=== PATIENT | female | born 1945 ===

== ENCOUNTER → 2018-05-08 | Outpatient (CLI) | payer MEDICARE, BC ==
[2018-05-08 15:38] VITALS: BP 125/86; PULSE 64; RESP 16; TEMP 98; BMI 37.9
--- NOTE | 2018-05-08 15:51 | P.HPBAR ---
Bariatric H&P - History & Physicial H&P Date: 05/08/18 History & Physicial: Visit/CC: INITIAL VISIT Patient initial contact: Initial weight: 99.535 kg Initial weight in pounds: 219.44 Height: 5 ft 3.75 in Initial BMI: 37.9 Last weight: Current weight: 99.535 kg Current weight in pounds: 219.44 Current BMI: 37.9 [place] body weight (based on NIH guidelines): 53.864 kg Excess body weight loss: 0.0% The patient is a 73 year-old F who presents for Bariatric Assessment. HPI: Her Hgb A1C is 9.4. She has trouble with swallowing. She is on insulin. She reports severe dysphagia. She has regurgitation. She has obtained cardiac clearance She has hypertension. She has CPAP for sleep apnea. No abdominal pain. Her gallbladder has been removed. No Crohns or ulcerative colitis. She is mom to [facility]. ABDOMEN: Soft ASSESSMENT: 1. Morbid obesity PLAN: 1. Labs 2. Upper endoscopy and Colonscopy for screen 3. Esophogram 4. Looking into the gastric bypass. Past Medical History Past Medical History: Diabetes Mellitus, Eye Disorder, GERD/Reflux, Hyperlipidemia, Hypertension, Thyroid Disorder History of Any Multi-Drug Resistant Organisms: None Reported Past Surgical History: Back Surgery, Cholecystectomy, Hysterectomy, Orthopedic Surgery, Tonsillectomy Additional Past Surgical History / Comment(s): right rotator cuff surgery Past Anesthesia/Blood Transfusion Reactions: No Reported Reaction Past Psychological History: No Psychological Hx Reported Smoking Status: Never smoker Past Alcohol Use History: None Reported Past Drug Use History: None Reported Surgical - Exam Vital Signs Temp Pulse Resp BP 98 F 64 16 125/86 05/08/18 15:24 05/08/18 15:24 05/08/18 15:24 05/08/18 15:24 Bariatric Checklist Checklist: Plan: Checklist: EGD: 1. Hiatal hernia: 2. H. Pylori: HgbA1c: Vitamin D: Smoking: Never smoker Primary care physician referral: Kimber Psychiatry clearance: Cardiology clearance: Sleep study: Diet journal: VTE risk score: VTE risk level: Rehab needs at discharge:
[2018-05-08 16:35] LABS: HCT 44.1 % (34.0-46.0); MCH 27.7 pg (25.0-35.0); MCHC 31.8 g/dL (31.0-37.0); MCV 87.3 fL (80.0-100.0); Mean Platelet Volume 7.3; Platelet Count 166 k/uL (150-450); RBC 5.05 m/uL (3.80-5.40); RDW 13.9 % (11.5-15.5); WBC 8.1 k/uL (3.8-10.6)
[2018-05-09 02:26] LABS: Iron Saturation 16.77 (12.00-45.00)
[2018-05-09 02:34] LABS: Vitamin D 25 Hydroxy 30.6 ng/mL (30.0-100.0)
[2018-05-09 02:36] LABS: Folate, Serum 15.4 ng/mL
[2018-05-09 02:38] LABS: Hemoglobin A1C 9.6 % (4.0-6.0)
[2018-05-09 04:28] LABS: ALT 12 U/L (8-44); AST 16 U/L (13-35); Albumin/Globulin Ratio 1.73 (1.60-3.17); Alkaline Phosphatase 90 U/L (41-126); Calcium 9.2 mg/dL (8.7-10.3); Carbon Dioxide 32.1 mmol/L (21.6-31.8); Chloride 98 mmol/L (96-109); Cholesterol 181 mg/dL (0-200); Globulin 2.2 g/dL (1.6-3.3); Glucose 272 mg/dL (70-110); Potassium 4.5 mmol/L (3.5-5.5); Sodium 138 mmol/L (135-145); Total Bilirubin 0.3 mg/dL (0.2-1.2)
== END ==
LOC: BARWHC3 13:47
PROVIDERS: ATTEND Surgery Plastic and Reconstructive Surgery
DX: Z48.815 Encounter for surgical aftercare following surgery on the digestive system (principal); R13.10 Dysphagia, unspecified; E88.81 Metabolic syndrome and other insulin resistance; K21.9 Gastro-esophageal reflux disease without esophagitis; E66.01 Morbid (severe) obesity due to excess calories; G47.30 Sleep apnea, unspecified; I11.9 Hypertensive heart disease without heart failure; E44.0 Moderate protein-calorie malnutrition; E55.9 Vitamin D deficiency, unspecified; E11.9 Type 2 diabetes mellitus without complications; Z79.4 Long term (current) use of insulin; Z90.710 Acquired absence of both cervix and uterus; Z98.890 Other specified postprocedural states; Z90.49 Acquired absence of other specified parts of digestive tract; Z99.89 Dependence on other enabling machines and devices; Z68.37 Body mass index [BMI] 37.0-37.9, adult; Z98.84 Bariatric surgery status
CPT/HCPCS: 84425; 80061; 80053; 82607; 82728; 82746; 83540; 83550; 84443; 85027; 83721; 82306; 83036; G0463; 99201

== ENCOUNTER → 2018-07-22 | Day surgery (SDC) | payer MEDICARE, BC ==
[2018-07-18 09:31] VITALS: BMI 38.7
--- NOTE | 2018-07-21 14:30 | P.GSHP ---
History of Present Illness H&P Date: 07/22/18 CHIEF COMPLAINT: GERD and colon screen HISTORY OF PRESENT ILLNESS: The patient is a 73-year-old female who presents with gastroesophageal reflux disease and need for colon screen. Upper and lower endoscopy were offered for further evaluation and management. PAST MEDICAL HISTORY: Please see list. PAST SURGICAL HISTORY: Please see list. MEDICATIONS: Please see list. ALLERGIES: Please see list. SOCIAL HISTORY: No illicit drug use FAMILY HISTORY: No reports of Crohn disease or ulcerative colitis. REVIEW OF ORGAN SYSTEMS: CONSTITUTIONAL: No reports of fevers or chills. GI: Denies any blood in stools or constipation. PHYSICAL EXAM: VITAL SIGNS: Stable GENERAL: Well-developed pleasant in no acute distress. HEENT: No scleral icterus. Extraocular movements grossly intact. Moist buccal mucosa. NECK: Supple without lymphadenopathy. CHEST: Unlabored respirations. Equal bilateral excursions. CARDIOVASCULAR: Regular rate and rhythm. Distal 2+ pulses. ABDOMEN: Soft, nondistended. MUSCULOSKELETAL: No clubbing, cyanosis, or edema. ASSESSMENT: 1. Gastroesophageal reflux disease 2. Colon screen. PLAN: 1. Recommend proceeding with an upper and lower endoscopy Past Medical History Past Medical History: Atrial Flutter, Chest Pain / Angina, Diabetes Mellitus, Eye Disorder, GERD/Reflux, Hyperlipidemia, Hypertension, Neurologic Disorder, Thyroid Disorder Additional Past Medical History / Comment(s): glaucoma klaus eyes, parkinsons History of Any Multi-Drug Resistant Organisms: None Reported Past Surgical History: Back Surgery, Cholecystectomy, Hysterectomy, Orthopedic Surgery, Tonsillectomy Additional Past Surgical History / Comment(s): right rotator cuff surgery Past Anesthesia/Blood Transfusion Reactions: Motion Sickness, Postoperative Nausea & Vomiting (PONV) Smoking Status: Never smoker - Past Family History Sister(s) Family Medical History: Cancer Additional Family Medical History / Comment(s): colon cancer Medications and Allergies Home Medications Medication Instructions Recorded Confirmed Type Apixaban [Eliquis] 5 mg PO BID 05/08/18 07/18/18 History Fesoterodine Fumarate [Toviaz] 8 mg PO DAILY 05/08/18 07/18/18 History Gabapentin 600 mg PO TID 05/08/18 07/18/18 History Insulin Aspart [NovoLOG] 14 unit SQ TID 05/08/18 07/18/18 History Insulin Glargine [Lantus] 36 unit SQ HS 05/08/18 07/18/18 History Latanoprost Ophth [Xalatan 0.005%] 1 drop BOTH EYES HS 05/08/18 07/18/18 History Levothyroxine Sodium [Tirosint] 100 mcg PO DAILY 05/08/18 07/18/18 History Metoprolol Succinate (ER) [Toprol 50 mg PO BID 05/08/18 07/18/18 History XL] Montelukast [Singulair] 10 mg PO DAILY 05/08/18 07/18/18 History Omeprazole 20 mg PO BID 05/08/18 07/18/18 History Potassium Chloride [Klor-Con 20] 20 meq PO DAILY 05/08/18 07/18/18 History Pravastatin Sodium [Pravachol] 80 mg PO DAILY 05/09/18 07/18/18 History Albuterol Inhaler [Ventolin Hfa 1 - 2 puff INHALATION RT-Q6H PRN 07/18/18 07/18/18 History Inhaler] Nitroglycerin Sl Tabs [Nitrostat] 0.4 mg SUBLINGUAL Q5M PRN 07/18/18 07/18/18 History Allergies Allergy/AdvReac Type Severity Reaction Status Date / Time iodine Allergy Rash/Hives Verified 07/18/18 09:15 meperidine [From Demerol] Allergy Nausea & Verified 07/18/18 09:15 Vomiting
[~2018-07-22] MED LIST: LACTATED RINGERS 1,000 ML IV SCH; LIDOCAINE 1% 20 ML VIAL (10MG/ML) FOR IV START INTRADERMA ONE; LIDOCAINE 1% INJ 10MG/ML (20 ML MDV) ONE; ONDANSETRON 4 MG/2 ML VIAL ONE; PROPOFOL 10 MG/ML 20 ML VIAL IV ONE
[2018-07-22 12:14] VITALS: RESP 16; TEMP 97.8
[2018-07-22 12:19] LABS: Glucose,Whole Blood 198 mg/dL (75-99)
--- NOTE | 2018-07-22 14:05 | P.PCN ---
Date of Procedure: 07/22/18 Description of Procedure: PREOPERATIVE DIAGNOSIS: Gastroesophageal reflux disease. Morbid obesity. Dysphagia POSTOPERATIVE DIAGNOSIS: Gastroesophageal reflux disease. Morbid obesity. Dysphagia Gastritis. Gastric polyps OPERATION: Esophagogastroduodenoscopy with biopsies along antrum. SURGEON: Lelia Miner MD ANESTHESIA: MAC. INDICATIONS: The patient is a 73-year-old female who presents with a history of reflux disease. Benefits and risks of the procedure were described. Informed consent w as obtained. DESCRIPTION: The patient was brought into the endoscopy suite and laid in the left lateral decubitus position. An Olympus gastroscope was passed along the posterior oropharynx down to the distal esophagus where the squamocolumnar junction was encountered at 45 cm from the incisors. The stomach was entered and no bile reflux was found. Additional findings are listed below. Biopsies with cold forceps were obtained of the antrum. The first through third portion of the duodenum was examined and unremarkable. Retroflexion of the scope confirmed Hill grade 3 lower esophageal valve. The squamocolumnar junction demonstrated LA grade A erosive esophagitis. The stomach was desufflated. The patient tolerated the procedure well. FINDINGS: Squamocolumnar junction 45 cm from the incisors. Diaphragmatic hiatus at 45 cm. Gastric polyps, few, along the superior pole of stomach Hill grade 3 lower esophageal valve. LA grade A erosive esophagitis. No active duodenitis. Chronic gastritis with biopsies obtained RECOMMENDATIONS: Upper endoscopy as needed.
--- NOTE | 2018-07-22 14:32 | P.PCN ---
Date of Procedure: 07/22/18 Description of Procedure: PREOPERATIVE DIAGNOSIS: Colonoscopy screening Personal history of colon polyps. POSTOPERATIVE DIAGNOSIS: Colonoscopy screening Personal history of colon polyps. Diverticulosis, scattered Multiple tubular adenomas throughout the colon. Internal hemorrhoids, grade 2. OPERATION: Colonoscopy to the ileocecal valve. Colonoscopy with multiple hot snare polypectomies Colonoscopy with multiple cold forceps biopsies. SURGEON: Lelia Miner MD. ANESTHESIA: MAC. INDICATIONS: The patient is a 73-year-old female who presents for colonoscopy screening. Last colonoscopy over 5 years ago. Benefits and risks were described and informed consent was obtained. DESCRIPTION OF PROCEDURE: The patient had undergone Gatorade, MiraLAX and Dulcolax prep. She had been brought into the operating room and laid in the left lateral decubitus position. After adequate intravenous sedation, the rectum was examined with 2% lidocaine jelly. External hemorrhoids were encountered. The rectal tone was within normal limits. No lesions were palpated in the rectal vault. An Olympus colonoscope was advanced until the ileocecal valve was viewed. Abdominal wall pressure including turning the patient supine was required to advance the scope. The prep was good with visualization of the mucosal folds. The scope was removed with visualization of each mucosal fold. Scattered diverticulosis was encountered. Multiple colonic polyps were found and cold forcep biopsy or snare polypectomy. No evidence of focal colitis was found. Retroflexion of the scope demonstrated grade 2 internal hemorrhoids without active bleeding or inflammation. The colon was desufflated. The patient had tolerated the procedure well. Withdrawal time was over 6 minutes. FINDINGS: Aronchick preparation quality scale 2 (1-5) Internal hemorrhoids, grade 2 External hemorrhoids, grade 2. No arteriovenous malformations. Redundant sigmoid colon Sigmoid diverticulosis. Removal of 3 polyps: - Snare polypectomy 60 cm from the anal verge, 5 mm tubulovillous adenoma polyp, descending colon - Cold forceps biopsy at 30 cm from the anal verge, 4 mm polyp, sigmoid colon No focal colitis. RECOMMENDATIONS: Given severity of tubular adenomas, recommend repeat colonoscopy 3 years, 2021. Plan - Discharge Summary Discharge Rx Participant: No New Discharge Prescriptions: No Action Apixaban [Eliquis] 5 mg PO BID Fesoterodine Fumarate [Toviaz] 8 mg PO DAILY Omeprazole 20 mg PO BID Potassium Chloride [Klor-Con 20] 20 meq PO DAILY Levothyroxine Sodium [Tirosint] 100 mcg PO DAILY Montelukast [Singulair] 10 mg PO DAILY Gabapentin 600 mg PO TID Metoprolol Succinate (ER) [Toprol XL] 50 mg PO BID Insulin Aspart [NovoLOG] 14 unit SQ TID Insulin Glargine [Lantus] 36 unit SQ HS Latanoprost Ophth [Xalatan 0.005%] 1 drop BOTH EYES HS Pravastatin Sodium [Pravachol] 80 mg PO DAILY Albuterol Inhaler [Ventolin Hfa Inhaler] 1 - 2 puff INHALATION RT-Q6H PRN PRN Reason: Dyspnea Nitroglycerin Sl Tabs [Nitrostat] 0.4 mg SUBLINGUAL Q5M PRN PRN Reason: Chest Pain Cephalexin [Keflex] 1 tablet PO BID Discharge Medication List Apixaban [Eliquis] 5 mg PO BID 05/08/18 [History] Fesoterodine Fumarate [Toviaz] 8 mg PO DAILY 05/08/18 [History] Gabapentin 600 mg PO TID 05/08/18 [History] Insulin Aspart [NovoLOG] 14 unit SQ TID 05/08/18 [History] Insulin Glargine [Lantus] 36 unit SQ HS 05/08/18 [History] Latanoprost Ophth [Xalatan 0.005%] 1 drop BOTH EYES HS 05/08/18 [History] Levothyroxine Sodium [Tirosint] 100 mcg PO DAILY 05/08/18 [History] Metoprolol Succinate (ER) [Toprol XL] 50 mg PO BID 05/08/18 [History] Montelukast [Singulair] 10 mg PO DAILY 05/08/18 [History] Omeprazole 20 mg PO BID 05/08/18 [History] Potassium Chloride [Klor-Con 20] 20 meq PO DAILY 05/08/18 [History] Pravastatin Sodium [Pravachol] 80 mg PO DAILY 05/09/18 [History] Albuterol Inhaler [Ventolin Hfa Inhaler] 1 - 2 puff INHALATION RT-Q6H PRN 07/18/18 [History] Nitroglycerin Sl Tabs [Nitrostat] 0.4 mg SUBLINGUAL Q5M PRN 07/18/18 [History] Cephalexin [Keflex] 1 tablet PO BID 06/03/19 [History] Follow up Appointment(s)/Referral(s): [facility],. [NON-STAFF] - 08/07/18 Patient Instructions/Handouts: Colorectal Polyps (DC), Diverticulosis Diet (GEN), Gastritis (ED) Activity/Diet/Wound Care/Special Instructions: Repeat colonoscopy in 3 years, 2021. START ELIQUIS ON 07/26/2018 Discharge Disposition: HOME SELF-CARE
[2018-07-22 14:41] LABS: Glucose,Whole Blood 165 mg/dL (75-99)
[2018-07-22 15:01] VITALS: BP 144/79; PULSE 60
== END | disposition home or self-care (01) ==
LOC: ORWHC2ENDO 11:10
PROVIDERS: ATTEND Surgery Plastic and Reconstructive Surgery
DX: Z12.11 Encounter for screening for malignant neoplasm of colon (principal); K29.50 Unspecified chronic gastritis without bleeding; D12.4 Benign neoplasm of descending colon; D12.5 Benign neoplasm of sigmoid colon; K31.7 Polyp of stomach and duodenum; I48.92 Unspecified atrial flutter; E11.39 Type 2 diabetes mellitus with other diabetic ophthalmic complication; H42 Glaucoma in diseases classified elsewhere; E78.5 Hyperlipidemia, unspecified; I10 Essential (primary) hypertension; E07.9 Disorder of thyroid, unspecified; K64.4 Residual hemorrhoidal skin tags; G20 Parkinson's disease; K63.5 Polyp of colon; K57.30 Diverticulosis of large intestine without perforation or abscess without bleeding; K64.1 Second degree hemorrhoids; K21.0 Gastro-esophageal reflux disease with esophagitis; Q43.8 Other specified congenital malformations of intestine; E66.01 Morbid (severe) obesity due to excess calories; K21.9 Gastro-esophageal reflux disease without esophagitis; Z79.4 Long term (current) use of insulin; Z86.010 Personal history of colon polyps; Z79.01 Long term (current) use of anticoagulants; Z79.899 Other long term (current) drug therapy; Z79.890 Hormone replacement therapy; Z88.5 Allergy status to narcotic agent; Z91.048 Other nonmedicinal substance allergy status; Z68.38 Body mass index [BMI] 38.0-38.9, adult
CPT/HCPCS: 88305; 45385; 45380; 43239; J2405; J2001; J2704